=== PATIENT | female | born 1990 | race Caucasian/White ===

== ENCOUNTER 2022-10-21 05:15 | Inpatient (IN) | payer BC ==
[2022-10-21] MEDS ORDERED: OMNIPEN 2 GM ONE (06:07)
[2022-10-21] MEDS ORDERED: Sodium Chloride 100ML MINI-BAG PLUS 100 ML IV ONE (06:07)
[2022-10-21] MEDS ORDERED: Lactated Ringers 1,000 ML IV ONE ×2 (06:07→06:16)
[2022-10-21] MEDS: Lactated Ringers 1,000 ML IV SCH ×2 (06:09→07:42)
[2022-10-21] MEDS ORDERED: Ephedrine Sulfate 50 MG/ML IV PRN (06:16)
[2022-10-21] MEDS ORDERED: TYLENOL EXTRA STRENGTH 500 MG PO PRN (06:26)
[2022-10-21] MEDS ORDERED: Zofran 4 MG/2 ML VIAL IV PRN (06:26)
[2022-10-21] MEDS ORDERED: XYLOCAINE 1% HCL 20 ML MDV IJ PRN (06:26)
[2022-10-21] MEDS ORDERED: PITOCIN 30 UNITS/ LR 500 ML 30 UNITS/500 ML PLAST..BAG IV SCH (06:26)
[2022-10-21] MEDS ORDERED: FENTANYL 2 MCG-BUPIV 0.125%-NS 250 ML Epidur 250 ML EPIDURAL SCH (06:30)
[2022-10-21 06:35] LABS: BASOPHIL % 0.3 % (0.0-0.4); Basophil (Absolute #) 0.03 x10^3/uL (0-0.4); Eosinophil % 0.7 % (0.00-5.0); Eosinophil (Absolute #) 0.07 x10^3/uL (0-0.5); Hematocrit 32.1 % (35-47); Hemoglobin 9.9 g/dL (12.0-16.0); IMMATURE GRAN # 0.09 x10^3u/L (0.00-0.03); IMMATURE GRAN % 0.9 % (0.00-0.4); Lymphocyte (Absolute #) 2.78 x10^3/uL (1.0-4.6); Lymphocytes % 26.6 % (24.0-44.0); Mean Cell Volume 83.2 fL (78-100); Mean Corpuscular Hemoglobin 25.6 pg (26-32); Mean Corpuscular Hgb Concent. 30.8 g/dL (32-36); Mean Platelet Volume 11.7 fL (7.5-11.0); Monocyte (Absolute #) 0.79 x10^3/uL (0.0-1.3); Monocytes % 7.6 % (0.0-12.0); Neutrophil % 63.9 % (36.0-66.0); Platelet Count 191 x10^3/uL (150-450); Red Blood Count 3.86 x10^6/uL (4.1-5.4); Red Cell Distribution Width 16.4 % (11.5-14.0); White Blood Count 10.5 x10^3/uL (4.0-10.5)
[2022-10-21 06:49] LABS: Amphetamine,Urine NEGATIVE (NEGATIVE); Barbiturate,Urine NEGATIVE (NEGATIVE); Benzodiazepine,Urine NEGATIVE (NEGATIVE); Cocaine,Urine NEGATIVE (NEGATIVE); Methadone,Urine NEGATIVE (NEGATIVE); Opiate,Urine NEGATIVE (NEGATIVE); PCP,Urine NEGATIVE (NEGATIVE); THC,Urine NEGATIVE (NEGATIVE)
[2022-10-21 06:50] LABS: ADD URINE CULTURE? YES (NO); Appearance Cloudy (Clear); Bacteria Many /HPF (None Seen); Bilirubin Negative (Negative); Blood Large (Negative); Epithelial Cells Many /HPF (None Seen); Glucose, Urine >=1000 mg/dL (Negative); Ketones Trace (Negative); Leukocyte Esterase Trace (Negative); Nitrite Negative (Negative); Ph 6.5 (4.6-8.0); Protein,Urine Dip 30 (Negative); RBC 51-100 /HPF (0-5); Specific Gravity >=1.030 (1.005-1.030); Urobilinogen 0.2 mg/dL (0.2); WBC 21-50 /HPF (0-5)
[2022-10-21 07:53] LABS: ABO TYPING O; Antibody Screen NEGATIVE (NEGATIVE); RH TYPING NEGATIVE
[2022-10-21] MEDS: OMNIPEN 1 GM*** 1 GM in Sodium Chloride 100ML MINI-BAG PLUS 100 ML IV SCH (10:22)
[2022-10-21] MEDS ORDERED: Dermoplast Spray TP PRN (11:24)
[2022-10-21] MEDS ORDERED: Adacel Vial IM ONE (11:24)
[2022-10-21] MEDS ORDERED: TUCKS TP PRN (11:24)
[2022-10-21] MEDS: Docusate Sodium 100 MG PO SCH (21:47)
[2022-10-21] MEDS: MOTRIN 400 MG PO PRN (22:29)
[2022-10-22 05:08] LABS: Absolute Neutrophil Ct (ANC) 9.27 x10^3/uL (1.4-6.9); BASOPHIL % 0.4 % (0.0-0.4); Basophil (Absolute #) 0.06 x10^3/uL (0-0.4); Eosinophil (Absolute #) 0.13 x10^3/uL (0-0.5); Hematocrit 28.2 % (35-47); IMMATURE GRAN # 0.07 x10^3u/L (0.00-0.03); IMMATURE GRAN % 0.5 % (0.00-0.4); Lymphocyte (Absolute #) 2.87 x10^3/uL (1.0-4.6); Lymphocytes % 21.4 % (24.0-44.0); Mean Cell Volume 82.2 fL (78-100); Mean Corpuscular Hemoglobin 26.2 pg (26-32); Mean Corpuscular Hgb Concent. 31.9 g/dL (32-36); Mean Platelet Volume 11.7 fL (7.5-11.0); Monocyte (Absolute #) 1.03 x10^3/uL (0.0-1.3); Monocytes % 7.7 % (0.0-12.0); Platelet Count 163 x10^3/uL (150-450); Red Blood Count 3.43 x10^6/uL (4.1-5.4); Red Cell Distribution Width 16.9 % (11.5-14.0); White Blood Count 13.4 x10^3/uL (4.0-10.5)
[2022-10-22] MEDS: MOTRIN 400 MG PO PRN ×2 (06:07→23:40)
[2022-10-22 08:18] LABS: HBsAg Screen Negative (Negative)
--- NOTE | 2022-10-22 10:26 | PCM.NOTE ---
Date and Time: 10/22/22 1024 Subjective Assessment: ppd 1 sp pt resting in bed and doing well without complaints. vss afebrile abd; soft uterus; firm lochia; mild hgb; 9.0 a/p sp ppd 1 anticipate discharge tomorrow fu office in 3 wks OBJECTIVE DATA Vital Signs: Vital Signs - 24 hr Temp Pulse Resp BP BP Pulse Ox 10/22/22 08:00 98.4 F 77 18 101/66 10/22/22 02:15 97.7 F 74 18 107/55 10/21/22 22:00 99.0 F 83 18 96 10/21/22 20:00 99.0 F 83 18 113/64 96 10/21/22 16:50 98.8 F 73 18 105/69 98 10/21/22 14:50 98 F 90 18 101/66 96 10/21/22 14:45 98.0 F 84 18 122/92 98 10/21/22 14:15 98 F 78 18 99/56 96 10/21/22 13:15 98 F 91 H 18 103/54 10/21/22 12:15 97.8 F 81 18 112/62 95 10/21/22 12:00 98 F 86 18 93/60 96 10/21/22 11:45 97.8 F 75 18 94/56 10/21/22 11:30 98.7 F 10/21/22 11:15 98.7 F 82 18 100/59 95 10/21/22 11:00 98 F 111 H 18 99/64 96 10/21/22 10:45 98 F 83 18 110/66 96 10/21/22 10:30 98 F 88 18 115/65 96 Pain Assessment - Last Documented Pain Intensity [Posterior] 3 Pain Intensity 4 Pain Scale Used 0-10 Pain Scale Intake and Output: Intake & Output 10/19/22 10/20/22 10/21/22 10/22/22 11:59 11:59 11:59 11:59 Intake Total 1000 500 Output Total 500 100 Balance 500 400 Weight 76.204 kg Lab Results: Lab Results-Last 24 Hours 10/21/22 10/22/22 Range/Units 06:02 04:29 WBC 13.4 H (4.0-10.5) x10^3/uL RBC 3.43 L (4.1-5.4) x10^6/uL Hgb 9.0 L (12.0-16.0) g/dL Hct 28.2 L (35-47) % MCV 82.2 (78-100) fL MCH 26.2 (26-32) pg MCHC 31.9 L (32-36) g/dL RDW 16.9 H (11.5-14.0) % Plt Count 163 (150-450) x10^3/uL MPV 11.7 H (7.5-11.0) fL Gran % 69.0 H (36.0-66.0) % Immature Gran % (Auto) 0.5 H (0.00-0.4) % Nucleat RBC Rel Count 0.0 (0.00-0.1) % Eos # (Auto) 0.13 (0-0.5) x10^3/uL Immature Gran # (Auto) 0.07 H (0.00-0.03) x10^3u/L Absolute Lymphs (auto) 2.87 (1.0-4.6) x10^3/uL Absolute Monos (auto) 1.03 (0.0-1.3) x10^3/uL Absolute Nucleated RBC 0.00 (0.00-0.01) x10^3u/L Lymphocytes % 21.4 L (24.0-44.0) % Monocytes % 7.7 (0.0-12.0) % Eosinophils % 1.0 (0.00-5.0) % Basophils % 0.4 (0.0-0.4) % Absolute Granulocytes 9.27 H (1.4-6.9) x10^3/uL Basophils # 0.06 (0-0.4) x10^3/uL Hep Bs Antigen Negative (Negative) Assessment/Plan (1) Vaginal delivery Current Visit: Yes Status: Acute Code(s): O80 - ENCOUNTER FOR FULL-TERM U NCOMPLICATED DELIVERY
--- NOTE | 2022-10-22 10:28 | PCM.DS ---
Discharge Summary Date of Admission: 10/21/22 05:15 Admitting Physician: DAVIE ACEVEDO DO Consults: Consults on Case 10/21/22 06:16 Notify Anesthesia Provider PRN 10/21/22 12:01 Navigation ONCE Primary Care Provider: STEPHEN CHRISTIANSON Allergies Allergies No Known Drug Allergies Allergy (Verified 10/20/22 13:06) Hospital Summary - Hospital Course Hospital Course: pt admitted on oct 21 and was 39 5/7 wks gestation for being in labor and had srom. pt was subsequently started on pitocin and delivered live baby girl without complication on oct 21 at 1128 in am. during period did well able to ambulate and tolerate diet. stable hgb at 9.0. all questions answered to her satisfaction as she may be discharged on oct 23 to fu in office in 3 wks. - Vitals & Intake/Output Vital Signs: Vital Signs Temperature 98.4 F 10/22/22 08:00 Pulse Rate 77 10/22/22 08:00 Respiratory Rate 18 10/22/22 08:00 Blood Pressure 101/66 10/22/22 08:00 O2 Sat by Pulse Oximetry 96 10/21/22 22:00 Intake & Output: Intake & Output 10/19/22 10/20/22 10/21/22 10/22/22 11:59 11:59 11:59 11:59 Intake Total 1000 500 Output Total 500 100 Balance 500 400 Weight 76.204 kg - Lab Result Diagrams: 10/22/22 04:29 Lab Results-Last 24 Hrs: Lab Results-Last 24 Hours 10/21/22 10/22/22 Range/Units 06:02 04:29 WBC 13.4 H (4.0-10.5) x10^3/uL RBC 3.43 L (4.1-5.4) x10^6/uL Hgb 9.0 L (12.0-16.0) g/dL Hct 28.2 L (35-47) % MCV 82.2 (78-100) fL MCH 26.2 (26-32) pg MCHC 31.9 L (32-36) g/dL RDW 16.9 H (11.5-14.0) % Plt Count 163 (150-450) x10^3/uL MPV 11.7 H (7.5-11.0) fL Gran % 69.0 H (36.0-66.0) % Immature Gran % (Auto) 0.5 H (0.00-0.4) % Nucleat RBC Rel Count 0.0 (0.00-0.1) % Eos # (Auto) 0.13 (0-0.5) x10^3/uL Immature Gran # (Auto) 0.07 H (0.00-0.03) x10^3u/L Absolute Lymphs (auto) 2.87 (1.0-4.6) x10^3/uL Absolute Monos (auto) 1.03 (0.0-1.3) x10^3/uL Absolute Nucleated RBC 0.00 (0.00-0.01) x10^3u/L Lymphocytes % 21.4 L (24.0-44.0) % Monocytes % 7.7 (0.0-12.0) % Eosinophils % 1.0 (0.00-5.0) % Basophils % 0.4 (0.0-0.4) % Absolute Granulocytes 9.27 H (1.4-6.9) x10^3/uL Basophils # 0.06 (0-0.4) x10^3/uL Hep Bs Antigen Negative (Negative) Micro Results-Entire Visit: Microbiology 10/21/22 06:28 Urine Culture - Final Urine, Void NO GROWTH 10/21/22 10:00 Urine Culture - Preliminary Urine, Indwelling Catheter <10K NORMAL SKIN HEATHER PROBABLE SKIN CONTAMINANT Final Diagnosis/Problem List - Final Discharge Diagnosis/Problem (1) Vaginal delivery Current Visit: Yes Status: Acute Code(s): O80 - ENCOUNTER FOR FULL-TERM UNCOMPLICATED DELIVERY - Discharge Disposition: Home, Self-Care Condition: Stable Prescriptions: No Action Mv-Mn/Iron/FA/Herbal/Digestive [ One Tablet] 1 each PO DAILY Ferrous Sulfate [Iron] 325 mg PO DAILY Citalopram Hydrobromide [Celexa] 10 mg PO DAILY Follow up with: STEPHEN CHRISTIANSON [Primary Care Provider] - DAVIE ACEVEDO DO [ACTIVE STAFF] - 3 weeks (should fu in office in 3 wks)
[2022-10-22] MEDS: Docusate Sodium 100 MG PO SCH ×2 (10:33→21:57)
[2022-10-22] MEDS: FERREX 150 PO SCH (10:33)
[2022-10-22] MEDS ORDERED: TYLENOL EXTRA STRENGTH 500 MG PO PRN (18:00)
[2022-10-22] MEDS ORDERED: Zofran 4 MG/2 ML VIAL IV PRN (18:00)
[2022-10-22] MEDS ORDERED: CYTOTEC PO SCH (18:00)
[2022-10-22] MEDS: OMNIPEN 1 GM*** 1 GM in Sodium Chloride 100ML MINI-BAG PLUS 100 ML IV SCH (20:44)
[2022-10-22] MEDS ORDERED: Adacel Vial IM ONE (23:43)
[2022-10-23] MEDS ORDERED: OMNIPEN 2 GM*** 2 G in Sodium Chloride 100ML MINI-BAG PLUS 100 ML IV ONE (08:00)
[2022-10-23] MEDS ORDERED: PITOCIN 30 UNITS/ LR 500 ML 30 UNITS/500 ML PLAST..BAG IV SCH (08:00)
[2022-10-23] MEDS ORDERED: XYLOCAINE 1% HCL 20 ML MDV IJ PRN (08:00)
[2022-10-23] MEDS: FERREX 150 PO SCH (09:26)
[2022-10-23] MEDS: Docusate Sodium 100 MG PO SCH (09:26)
[2022-10-23] MEDS ORDERED: M-M-R II Vaccine With Diluent SQ ONE (10:00)
[2022-10-23 11:19] VITALS: BP 99/62; PULSE 95; O2SAT 97
[2022-10-23] MEDS ORDERED: OMNIPEN 1 GM*** 1 GM in Sodium Chloride 100ML MINI-BAG PLUS 100 ML IV SCH (12:00)
== END 2022-10-23 14:45 | disposition home or self-care (01) | DRG 807 ==
LOC: OB 05:15 → OBSVTOIN 05:15
PROVIDERS: ADMIT Obstetrics & Gynecology; ATTEND Obstetrics & Gynecology
PROC: 10E0XZZ Delivery of Products of Conception, External Approach (ICD-10-PCS; principal; 2022-10-21)
DX: O80 Encounter for full-term uncomplicated delivery (principal); Z37.0 Single live birth; Z3A.39 39 weeks gestation of pregnancy; Z20.828 Contact with and (suspected) exposure to other viral communicable diseases
CPT/HCPCS: 36415; 59400; 80307; 81001; 84112; 85025; 86850; 86900; 86901; 87086; 87340; 90471; 90707; 90715; J0290; J2405; J2590; A9270-GY